=== PATIENT | male | born 1990 | race Hispanic/Latino ===

== ENCOUNTER 2018-01-10 15:19 | Emergency (ER) | payer OTHER ==
[~2018-01-10] VITALS: Ht 177.8 cm; Wt 95.3 kg
[2018-01-10 15:28] VITALS: BP 135/72
[2018-01-10] MEDS ORDERED: CALAMINE PHENO180 ML TOP (16:29)
[2018-01-10] MEDS ORDERED: PREDNISONE20 M1 PO (16:29)
[2018-01-10] MEDS ORDERED: BENADRYL ALLERG25 M2 PO (16:29)
[2018-01-10] MEDS ORDERED: PEPCID20 M1 PO (16:29)
--- NOTE | 2018-01-10 16:30 | ED SKIN/ALLERGY COMPLAINT ---
History of Present Illness General Chief Complaint: Skin Rash/ Abcess Stated Complaint: ?POISON GRIS ON BOTH ARMS Source: patient, old records, friend Exam Limitations: no limitations Vital Signs & Intake/Output Vital Signs & Intake/Output Vital Signs Date Time Temp Pulse Resp B/P B/P Pulse O2 O2 Flow FiO2 Mean Ox Delivery Rate 01/10 1528 96.8 68 18 135/72 98 Room Air Allergies Coded Allergies: Penicillins (Intermediate, HIVES 01/10/18) Triage Note: 27M WITH RASH TO ARMS, RIGHT GROIN AND FOREHEAD AFTER CUTTING DOWN TREES, NOTICED IT START TO ERUPT TWO DAYS AGO. DENIES FEVERS/CHILLS. +ITCHING, DENIES PAIN. DENIES DRAINAGE. Triage Nurses Notes Reviewed? yes Onset: 2 days Duration: day(s):, constant, getting worse Timing: remote history Severity: moderate Location: torso, extremities Possible Factors: exposure to allergen Modifying Factors: Improves With: scratching. Associated Symptoms: change in skin texture, rash HPI: 4 days prior to admission patient was cutting down trees with kimberly. 2 days prior to admission he developed itchy patches of rash on the volar forearms and right inguinal area. He denies fever chills nausea vomiting diarrhea abdominal pain chest pain shortness breath headache dysuria bleeding. Past History Travel History Traveled to [place] past 21 day No Medical History Any Pertinent Medical History? none Surgical History Surgical History: non-contributory Psychosocial History What is your primary language Sinhala Tobacco Use: Never used ETOH Use: denies use Illicit Drug Use: marijuana Family History Hx Contributory? No Review of Systems Review of Systems Constitutional: Reports: no symptoms. EENTM: Reports: no symptoms. Respiratory: Reports: no symptoms. Cardiovascular: Reports: no symptoms. GI: Reports: no symptoms. Genitourinary: Reports: no symptoms. Musculoskeletal: Reports: no symptoms. Skin: Reports: see HPI, rash. Neurological/Psychological: Reports: no symptoms. Hematologic/Endocrine: Reports: no symptoms. Immunologic/Allergic: Reports: no symptoms. All Other Systems: Reviewed and Negative Physical Exam Physical Exam General Appearance: well developed/nourished, alert, awake, anxious, mild distress Head: atraumatic, normal appearance Eyes: Bilateral: normal appearance, PERRL, EOMI. Ears, Nose, Throat: normal pharynx, normal ENT inspection, hearing grossly normal Neck: normal inspection, supple, full range of motion Respiratory: normal breath sounds, chest non-tender, no respiratory distress, quiet respiration, lungs clear Cardiovascular: regular rate/rhythm, normal peripheral pulses, norml femoral pulses equa Peripheral Pulses: 4+ carotid (R), 4+ carotid (L) Gastrointestinal: normal bowel sounds, soft, non-tender, no organomegaly Back: normal inspection, normal range of motion, no vertebral tenderness Extremities: normal inspection, normal capillary refill, normal range of motion, no edema Neurologic/Psych: no motor/sensory deficits, awake, alert, oriented x 3, normal gait, normal mood/affect, 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 Skin: normal color, rash, Papular rashes in patches and linear array over dorsal forearms and RLQ Skin Problem Location: upper extremities, torso Skin Problem Character: erythema, linear, patchy, rash Lymphatic: no anterior cervical kathrin Progress Differential Diagnosis: abscess/cellulitis, allergic reaction, contact dermatitis, urticaria Plan of Care: Current Medications Sig/Dale Start time Last Medication Dose Stop Time Status Admin Diphenhydramine HCl 25 MG ONCE ONE 01/10 1630 AC (Benadryl) 01/10 1631 Famotidine 20 MG ONCE ONE 01/10 1630 AC (Pepcid) 01/10 1631 Prednisone 60 MG ONCE ONE 01/10 1630 AC 01/10 1631 Departure Departure Time of Disposition: 1625 Disposition: HOME OR SELF CARE Condition: Stable Clinical Impression Primary Impression: Poison gris dermatitis Referrals: Patient Has No Primary Care Dr (PCP/Family) Departure Forms: Customer Survey General Discharge Information Prescriptions: Current Visit Scripts Prednisone 1 TAB PO BID #10 TAB Famotidine (Pepcid) 1 TAB PO BID #10 TAB Diphenhydramine HCl (Benadryl Allergy) 1-2 TAB PO Q6P PRN poison gris #30 TAB Ref 1 Calamine/Phenol Liquid (Calamine Phenolated Lotion) 1 VIRIDIANA TOP Q4P PRN itchy rash #180 ML Ref 2
== END 2018-01-10 16:40 ==
LOC: ERH 15:19
DX: L23.7 Allergic contact dermatitis due to plants, except food (principal)